=== PATIENT | female | born 1990 | race Caucasian/White ===

== ENCOUNTER 2020-12-30 16:26 | Inpatient (IN) | payer OTHER ==
[2020-12-30] MEDS ORDERED: OXYTOCIN 30 UNITS/LACT RINGERS 500 ML IV ONE (16:45)
[2020-12-30] MEDS ORDERED: CITRIC ACID/SODIUM CITRATE 30 ML SOLUTION UDCUP PO PRN (16:45)
[2020-12-30] MEDS ORDERED: METOCLOPRAMIDE HCL 5 MG/ML 2 ML VIAL IVP PRN (16:45)
[2020-12-30] MEDS ORDERED: LIDOCAINE/PF 1% 30 ML VIAL SQ PRN (16:45)
[2020-12-30] MEDS ORDERED: RINGERS SOLUTION,LACTATED 1,000 ML IV PRN (16:45)
[2020-12-30] MEDS ORDERED: RINGERS SOLUTION,LACTATED 1,000 ML IV ONE (16:52)
[2020-12-30 16:57] VITALS: BP 119/77
[2020-12-30 17:30] LABS: COVID AG,FIA SOURCE NASOPHARYNGEAL
[2020-12-30] MEDS ORDERED: FentaNYL CITRATE PF 100 MCG/2 ML VIAL IVP PRN (17:30)
[2020-12-30] MEDS ORDERED: OXYTOCIN 30 UNITS/LACT RINGERS 500 ML IV PRN (17:30)
[2020-12-30] MEDS: RINGERS SOLUTION,LACTATED 1,000 ML IV SCH (17:33)
[2020-12-30 17:42] LABS: BASOPHILS % (AUTO) 0.7 % (0.0-2.0); EOSINOPHILS % (AUTO) 0.2 % (1.0-6.0); HEMATOCRIT 37.7 % (36-46); HEMOGLOBIN 12.7 g/dL (12.0-16.0); LYMPHOCYTES # (AUTO) 1.7 K/uL (1.0-4.8); LYMPHOCYTES % (AUTO) 21.3 % (22.0-44.0); MEAN CORPUSCULAR HEMOGLOBIN 33.1 pg (26.0-34.0); MEAN CORPUSCULAR HGB CONC 33.6 G/dL (31.0-37.0); MEAN CORPUSCULAR VOLUME 99 fL (80-100); MONOCYTES # (AUTO) 0.7 K/uL (0.1-1.0); MONOCYTES % (AUTO) 8.7 % (2.0-9.0); NEUTROPHILS # (AUTO) 5.6 K/uL (1.8-7.7); NEUTROPHILS % (AUTO) 69.1 % (40.0-70.0); PLATELET COUNT (AUTO) 157 K/uL (150-450); RED BLOOD CELL COUNT(AUTO) 3.83 MIL/uL (4.00-5.20); RED CELL DISTRIBUTION WIDTH 13.9 % (11.5-14.5)
[2020-12-30] MEDS ORDERED: OXYGEN THERAPY IH SCH (20:00)
[2020-12-30] MEDS ORDERED: ROPIVACAINE HCL/PF 0.2% 100 ML ED ONE (20:12)
[2020-12-31] MEDS: RINGERS SOLUTION,LACTATED 1,000 ML IV SCH ×3 (00:07→06:55)
[2020-12-31] MEDS ORDERED: NALBUPHINE HCL 10 MG/ML VIAL IVP PRN (05:45)
[2020-12-31] MEDS ORDERED: ROPIVACAINE HCL/PF 0.2% 100 ML ED PRN (05:45)
[2020-12-31] MEDS ORDERED: DiphenhydrAMINE HCL 50 MG/ML VIAL IVP PRN (05:45)
[2020-12-31] MEDS ORDERED: ONDANSETRON HCL 4 MG/2 ML VIAL IVP PRN (05:45)
[2020-12-31] MEDS ORDERED: LIDOCAINE/PF 1% 30 ML VIAL SQ PRN (12:30)
[2020-12-31] MEDS ORDERED: LANOLIN 7 GM OINTMENT TP PRN (12:30)
[2020-12-31] MEDS ORDERED: BENZOCAINE 20%/MENTHOL 56 GM SPRAY CANISTER TP PRN (12:30)
[2020-12-31] MEDS ORDERED: OXYTOCIN 30 UNITS/LACT RINGERS 500 ML IV ONE (12:30)
[2020-12-31] MEDS ORDERED: OxyCODONE HCL/ACETAMINOPHEN 5-325 MG TABLET PO PRN ×2 (12:30)
[2020-12-31] MEDS ORDERED: GLYCERIN/WITCH HAZEL LEAF 40 PADS JAR TP PRN (12:30)
[2020-12-31] MEDS: IBUPROFEN 800 MG TABLET PO PRN (18:39)
[2020-12-31] MEDS: MAGNESIUM HYDROXIDE SUSPENSION 30 ML UDCUP PO PRN (20:44)
[2021-01-01] MEDS: IBUPROFEN 800 MG TABLET PO PRN (00:24)
[2021-01-01 06:31] LABS: BASOPHILS % (AUTO) 0.2 % (0.0-2.0); EOSINOPHILS % (AUTO) 0.4 % (1.0-6.0); HEMATOCRIT 31.4 % (36-46); HEMOGLOBIN 10.5 g/dL (12.0-16.0); MEAN CORPUSCULAR HEMOGLOBIN 33.3 pg (26.0-34.0); MEAN CORPUSCULAR HGB CONC 33.5 G/dL (31.0-37.0); MEAN CORPUSCULAR VOLUME 100 fL (80-100); MONOCYTES # (AUTO) 0.9 K/uL (0.1-1.0); MONOCYTES % (AUTO) 7.6 % (2.0-9.0); NEUTROPHILS # (AUTO) 8.7 K/uL (1.8-7.7); NEUTROPHILS % (AUTO) 74.8 % (40.0-70.0); PLATELET COUNT (AUTO)-OB 145 K/uL (150-450); RED BLOOD CELL COUNT(AUTO) 3.15 MIL/uL (4.00-5.20); RED CELL DISTRIBUTION WIDTH 13.9 % (11.5-14.5)
[2021-01-01] MEDS: MAGNESIUM HYDROXIDE SUSPENSION 30 ML UDCUP PO PRN (08:34)
[2021-01-01] MEDS ORDERED: FERR-89 PO (09:46)
[2021-01-01] MEDS ORDERED: DOCU-275 PO (09:46)
[2021-01-01] MEDS ORDERED: IBUP-2071 PO (09:46)
== END 2021-01-01 11:40 | disposition home or self-care (01) | DRG 807 ==
LOC: 4S 16:26 → PREOBSVTOIN 02-02 16:31
PROVIDERS: ADMIT Obstetrics & Gynecology Obstetrics; ATTEND Obstetrics & Gynecology Obstetrics
PROC: 10D07Z6 Extraction of Products of Conception, Vacuum, Via Natural or Artificial Opening (ICD-10-PCS; principal; 2020-12-31)
PROC: 0KQM0ZZ Repair Perineum Muscle, Open Approach (ICD-10-PCS; 2020-12-31)
PROC: 10907ZC Drainage of Amniotic Fluid, Therapeutic from Products of Conception, Via Natural or Artificial Opening (ICD-10-PCS; 2020-12-31)
PROC: 3E0R3BZ Introduction of Anesthetic Agent into Spinal Canal, Percutaneous Approach (ICD-10-PCS; 2020-12-31)
PROC: 00HU33Z Insertion of Infusion Device into Spinal Canal, Percutaneous Approach (ICD-10-PCS; 2020-12-31)
DX: O70.1 Second degree perineal laceration during delivery (principal); Z37.0 Single live birth; O66.5 Attempted application of vacuum extractor and forceps; Z3A.38 38 weeks gestation of pregnancy; Z20.822 Contact with and (suspected) exposure to COVID-19
CPT/HCPCS: 86850; 86900; 86901; 87426; J2590; J2795; J7120